=== PATIENT | male | born 1955 | race Caucasian/White ===

== ENCOUNTER → 2019-11-19 | Outpatient (CLI) | payer BC ==
[2019-12-01 13:20] VITALS: BP 146/85
--- NOTE | 2019-12-01 13:20 | Cardiology Stress Test Report ---
Stress Test Report Type of NM Stress Test: Test Type: LEXISCAN 0.4MG/5ML Date of Procedure/Referring: Date of Procedure: Nov 26, 2019 PCP Sarahy Lucero MD Admitting Physician No,Local Physician Indications: Syncope Baseline Heart Rate: 63 Baseline Blood Pressure: Blood Pressure Systolic: 146 Blood Pressure Diastolic: 85 Baseline EKG: Baseline EKG: sinus rhythm Summary & Conclusion: Summary: The patient was brought to the stress lab after informed consent was taken. Stress test was performed according to the Lexiscan protocol. 0.4 mg of IV Lexiscan was given. Low-grade exercise was performed. Baseline EKG showed sinus rhythm at 63 bpm and blood pressure 146/85 mmHg. Maximum heart rate of 64 bpm and blood pressure 144/83 mmHg. Patient did not have any chest pain, arrhythmias or ST segment changes during the stress test. 10.73 mCi of Myoview were given for rest imaging and 28.6 mCi of Myoview given for stress imaging. Transient ischemic dilatation score 0.92, EF 55 percent. Normal wall motion. Normal myocardial perfusion imaging during rest and stress. Conclusion: Pharmacological stress test was negative for ischemia. Normal LV function with no wall motion abnormalities. Normal myocardial perfusion imaging during rest and stress. Sarahy LUCERO MD Dec 01, 2019 13:20
== END ==
LOC: CARD 11:35
PROVIDERS: ATTEND Internal Medicine Interventional Cardiology
DX: R55 Syncope and collapse (principal); I47.1 Supraventricular tachycardia
CPT/HCPCS: 93306

== ENCOUNTER 2019-11-26 06:55 | Outpatient (RCR) | payer BC ==
[~2019-11-26] VITALS: Ht 175 cm; Wt 56.0 kg
[2019-11-26] MEDS ORDERED: CATHETER FLUSH 10 ML SYR IV PRN (07:15)
[2019-11-26] MEDS ORDERED: REGADENOSON 0.4 MG/5 ML SYR (LEXISCAN) IV ONE ×2 (07:30→08:48)
[2019-11-26 18:03] VITALS: BP 146/85
--- NOTE | 2019-11-26 18:03 | Cardiology Stress Test Report ---
Stress Test Report Type of NM Stress Test: Test Type: LEXISCAN 0.4MG/5ML Date of Procedure/Referring: Date of Procedure: Nov 26, 2019 PCP Sarahy Lucero MD Admitting Physician No,Local Physician Indications: Syncope Baseline Heart Rate: 63 Baseline Blood Pressure: Blood Pressure Systolic: 146 Blood Pressure Diastolic: 85 Baseline EKG: Baseline EKG: sinus rhythm Summary & Conclusion: Summary: The patient was brought to the stress lab after informed consent was taken. Stress test was performed according to the Lexiscan protocol. 0.4 mg of IV Lexiscan was given. Low-grade exercise was performed. Baseline EKG showed sinus rhythm at 63 bpm and blood pressure 146/85 mmHg. Maximum heart rate of 64 bpm and blood pressure 144/83 mmHg. Patient did not have any chest pain, arrhythmias or ST segment changes during the stress test. 10.73 mCi of Myoview were given for rest imaging and 28.6 mCi of Myoview given for stress imaging. Transient ischemic dilatation score 0.92, EF 55 percent. Normal wall motion. Normal myocardial perfusion imaging during rest and stress. Conclusion: Pharmacological stress test was negative for ischemia. Normal LV function with no wall motion abnormalities. Normal myocardial perfusion imaging during rest and stress. Sarahy LUCERO MD Nov 26, 2019 18:03
== END 2020-02-24 | disposition home or self-care (01) ==
LOC: CARD 06:55
PROVIDERS: ATTEND Internal Medicine Interventional Cardiology
DX: I47.1 Supraventricular tachycardia (principal); R55 Syncope and collapse; R07.2 Precordial pain; Z72.0 Tobacco use
CPT/HCPCS: 78452; 93017; A9502